=== PATIENT | female | born 1950 | race Caucasian/White ===

== ENCOUNTER → 2016-10-20 | Outpatient (CLI) | payer MEDICARE ==
[2016-10-20 19:52] LABS: DHEA Sulfate 97.1 ug/dL (26.0-430.0)
[2016-10-20 22:45] LABS: ACTH 35.6 pg/mL (0.00-45.99)
== END | disposition home or self-care (01) ==
LOC: LABWHC1 14:19
PROVIDERS: ATTEND Internal Medicine Endocrinology, Diabetes & Metabolism
DX: L68.0 Hirsutism (principal)
CPT/HCPCS: 36415; 82024; 82533; 82626; 82627; 83498; 84146; 84403; 84439; 84443

== ENCOUNTER → 2016-10-21 | Outpatient (CLI) | payer MEDICARE ==
--- NOTE | 2016-10-21 18:20 | US ---
EXAMINATION TYPE: US transvaginal DATE OF EXAM: 10/21/2016 COMPARISON: NONE CLINICAL HISTORY: L68.0 Hirsutism. TECHNIQUE: Transvaginal (TV) Date of LMP: Years ago EXAM MEASUREMENTS: Uterus: 9.1 x 6.5 x 6.5 cm Endometrial Stripe: 1.9 cm 1. Uterus: Anteverted Heterogenous echogenic area visualized measuring 1.8 x 2.0 x 2.0 cm 2. Endometrium: appears heterogenous and thickened 3. Right Ovary: Obscured by overlying bowel gas 4. Left Ovary: Obscured by overlying bowel gas 5. Bilateral Adnexa: wnl 6. Posterior cul-de-sac: wnl Uterus and endometrium heterogenous in appearance. Echogenic area in uterus measuring 1.8 x 2.0 x 2.0 cm IMPRESSION: Uterus is large consistent with multiple fibroids. The largest is 2 cm. Abnormally thicke jori endometrium and follow-up is recommended. No adnexal mass.
== END ==
LOC: RADUSMAIN 17:18
PROVIDERS: ATTEND Family Medicine
DX: R93.8 Abnormal findings on diagnostic imaging of other specified body structures (principal); L68.0 Hirsutism
CPT/HCPCS: 76830

== ENCOUNTER → 2016-12-08 | Outpatient (CLI) | payer MEDICARE ==
--- NOTE | 2016-12-10 08:15 | MM ---
Reason for exam: screening (asymptomatic). Last mammogram was performed 3 years and 8 months ago. History: Patient is postmenopausal. Family history of breast cancer in cousin at age 60. Physical Findings: A clinical breast exam by your physician is recommended on an annual basis and results should be correlated with mammographic findings. MG Screening Mammo w CAD Bilateral CC and MLO view(s) were taken. XCCL view(s) were taken of the right breast. Prior study comparison: April 12, 2013, bilateral digital screening mammo w/CAD. August 28, 2010, bilateral digital screening mammo w/CAD. There are scattered fibroglandular densities. No suspicious abnormality. No significant changes when compared with prior studies. ASSESSMENT: Negative, BI-RAD 1 RECOMMENDATION: Routine screening mammogram of both breasts in 1 year.
== END | disposition home or self-care (01) ==
LOC: RADMAMWWP 10:46
PROVIDERS: ATTEND Family Medicine
DX: Z12.31 Encounter for screening mammogram for malignant neoplasm of breast (principal)

== ENCOUNTER → 2016-12-09 | Outpatient (CLI) | payer MEDICARE ==
[2016-12-09 10:15] LABS: Basophils % (A) 1 %; CH 28.9; CHCM 31.1; Eosinophils # (A) 0.1 k/uL (0-0.7); Eosinophils % (A) 2 %; HCT 47.1 % (34.0-46.0); HDW 2.35; Hypochromasia Slight; Luc # (Auto) 0.25; Luc % (Auto) 3; Lymphocytes % (A) 38 %; MCH 29.8 pg (25.0-35.0); MCHC 31.9 g/dL (31.0-37.0); MCV 93.5 fL (80.0-100.0); Mean Platelet Volume 8.6; Monocytes # (A) 0.5 k/uL (0-1.0); Monocytes % (A) 6 %; Neutrophils # (A) 4.1 k/uL (1.3-7.7); Neutrophils % (A) 51 %; RBC 5.04 m/uL (3.80-5.40); WBC 8.1 k/uL (3.8-10.6)
== END | disposition home or self-care (01) ==
LOC: LABPAT 09:10
PROVIDERS: ATTEND Obstetrics & Gynecology
DX: Z01.810 Encounter for preprocedural cardiovascular examination (principal)
CPT/HCPCS: 36415; 85025; 93005

== ENCOUNTER 2016-12-22 06:06 | Day surgery (SDC) | payer MEDICARE ==
[2016-12-21 10:13] VITALS: BMI 51.2
--- NOTE | 2016-12-21 19:16 | P.HPOB ---
History of Present Illness H&P Date: 12/21/16 Chief Complaint: Endometrial thickening This is a 66-year-old female 3 para 3 who presents for dilation and curettage with hysteroscopy secondary to thickened endometrium. She did have an endometrial biopsy performed in the office on 11/13/2016 that showed a minute fragment of endocervical mucosa with focal squamous metaplasia and coexisting intact ectocervical mucosa but no endometrial tissue present for evaluation. She is therefore scheduled for this procedure to better evaluate the lining of her uterus. She denies any postmenopausal bleeding. Her last menstrual period was at age 55-56. Pelvic ultrasound showed uterus measuring 9.1 x 6.5 x 6.5 cm with endometrial thickness of 1.9 cm and multiple fibroids the largest of which was 2 cm. Neither ovary was visualized but no adnexal masses were seen. Obstetrical history: . History of 3 vaginal deliveries. Gynecologic history: She does have a history of herpes but no recent outbreaks. She has had no recent sexual partners. Social history: She is and retired. Review of Systems Constitutional: Reports fatigue Ears, nose, mouth and throat: Denies headache, Denies sore throat Cardiovascular: Denies chest pain Respiratory: Reports dyspnea Gastrointestinal: Denies abdominal pain, Denies diarrhea, Denies nausea, Denies vomiting Genitourinary: Reports abnormal vaginal bleeding, Reports urge incontinence, Denies pelvic pain Menstruation: Reports postmenopausal Musculoskeletal: Denies myalgias Integumentary: Reports hirsutism Neurological: Reports paresthesias (Cold feeling in her lower legs), Denies headaches Psychiatric: Reports depression, Reports insomnia, Denies anxiety Past Medical History Past Medical History: Diabetes Mellitus, Hyperlipidemia, Hypertension, Osteoarthritis (OA), Thyroid Disorder Additional Past Medical History / Comment(s): seasonal allergies, diabetic neuropathy History of Any Multi-Drug Resistant Organisms: None Reported Past Surgical History: Adenoidectomy, Joint Replacement, Tonsillectomy, Tubal Ligation Additional Past Surgical History / Comment(s): nataliya knee replacement Past Anesthesia/Blood Transfusion Reactions: No Reported Reaction Past Psychological History: No Psychological Hx Reported Smoking Status: Never smoker Past Alcohol Use History: None Reported Past Drug Use History: None Reported - Past Family History Sister(s) Family Medical History: Cancer Additional Family Medical History / Comment(s): melanoma Daughter(s) Family Medical History: Cancer Additional Family Medical History / Comment(s): Medications and Allergies Home Medications Medication Instructions Recorded Confirmed Type Aspirin [Adult Low Dose Aspirin EC] 81 mg PO DAILY 12/21/16 12/21/16 History Cholecalciferol [Vitamin D3] 1,000 unit PO DAILY 12/21/16 12/21/16 History Dapagliflozin Propanediol [Farxiga] 10 mg PO DAILY 12/21/16 12/21/16 History INSULIN LISPRO (HumaLOG) [HumaLOG] See Protocol SQ AC-TID 12/21/16 12/21/16 History Insulin Lispro [humaLOG Kwikpen] 20 unit SQ AC-LUNCH 12/21/16 12/21/16 History Insulin Lispro [humaLOG Kwikpen] 23 unit SQ AC-SUPPER 12/21/16 12/21/16 History Insulin Lispro [humaLOG Kwikpen] 24 unit SQ AC-BRKFST 12/21/16 12/21/16 History Levothyroxine Sodium 25 mcg PO DAILY 12/21/16 12/21/16 History Ramipril [Altace] 5 mg PO DAILY 12/21/16 12/21/16 History Rosuvastatin [Crestor] 10 mg PO DAILY 12/21/16 12/21/16 History metFORMIN HCL 1,000 mg PO BID 12/21/16 12/21/16 History Allergies Allergy/AdvReac Type Severity Reaction Status Date / Time adhesive tape Allergy red skin Verified 12/21/16 09:37 Exam Osteopathic Statement: *. No significant issues noted on an osteopathic structural exam other than those noted in the History and Physical/Consult. - Vital Signs Vital signs: Intake and Output 12/21/16 12/21/16 12/21/16 06:59 14:59 22:59 Other: Weight 131.088 kg Patient Weight 12/22/16 06:59 Weight 131.088 kg HEENT: Within normal limits Heart: Regular rate and rhythm Lungs: Clear to auscultation bilaterally Abdomen: Soft, nontender Pelvic exam: Uterus is small, anteverted, with no adnexal masses or tenderness noted. Extremities: Negative Homans Assessment and Plan (1) Endometrial thickening on ultra sound Status: Acute Plan: Proceed with dilation and curettage with hysteroscopy. I have discussed the risks, benefits, and alternative therapies for the above- mentioned procedure and for both sedation/anesthesia as well as necessary blood products administration, if indicated, as they pertain to this patient. The patient has indicated her understanding and acceptance of the risks and procedures discussed.
[~2016-12-22 06:06] MED LIST: DEXAMETHASONE SOD PHOSPHATE 10 MG/ML 1 ML VIAL IV ONE; HYDROmorphone 0.5 MG/0.5 ML SYRINGE IVP PRN; LACTATED RINGERS 1,000 ML IV SCH; ONDANSETRON 4 MG/2 ML VIAL IVP ONE; Pre Op ABX Message 1 EACH MISC MISCELLANE ONE
[2016-12-22] MEDS ORDERED: LIDOCAINE 1% 20 ML VIAL (10MG/ML) FOR IV START INTRADERMA ONE (07:03)
[2016-12-22 07:08] LABS: Glucose,Whole Blood 114 mg/dL (75-99)
[2016-12-22] MEDS ORDERED: SUCCINYLCHOLINE CHLORIDE 100 MG/5 ML SYR IV ONE (07:40)
[2016-12-22] MEDS ORDERED: LIDOCAINE 1% INJ 10MG/ML (20 ML MDV) ONE (07:40)
[2016-12-22] MEDS ORDERED: PROPOFOL 10 MG/ML 20 ML VIAL IV ONE (07:40)
[2016-12-22] MEDS ORDERED: fentaNYL (PF) 50 MCG/ML 2 ML AMP ONE (07:40)
[2016-12-22] MEDS ORDERED: MIDAZOLAM 2 MG/2 ML VIAL ONE (07:40)
[2016-12-22] MEDS ORDERED: KETOROLAC 30 MG/ML 1 ML VIAL IVP ONE (08:28)
[2016-12-22 08:31] LABS: Glucose,Whole Blood 115 mg/dL (75-99)
[2016-12-22 08:33] VITALS: TEMP 97
--- NOTE | 2016-12-22 08:38 | P.OP ---
Date of Procedure: 12/22/16 Preoperative Diagnosis: Endometrial thickening Postoperative Diagnosis: Same Procedure(s) Performed: Hysteroscopy with dilatation and curettage Anesthesia: CINDY Surgeon: Isabell Guzman Estimated Blood Loss (ml): 2 Pathology: other (Endometrial curettings) Condition: stable Disposition: same day Indications for Procedure: This is a 66-year-old female 3 para 3 who presents for dilation and curettage with hysteroscopy secondary to thickened endometrium. She did have an endometrial biopsy performed in the office on 11/13/2016 that showed a minute fragment of endocervical mucosa with focal squamous metaplasia and coexisting intact ectocervical mucosa but no endometrial tissue present for evaluation. She is therefore scheduled for this procedure to better evaluate the lining of her uterus. She denies any postmenopausal bleeding. Her last menstrual period was at age 55-54. Pelvic ultrasound showed uterus measuring 9.1 x 6.5 x 6.5 cm with endometrial thickness of 1.9 cm and multiple fibroids the largest of which was 2 cm. Neither ovary was visualized but no adnexal masses were seen. Operative Findings: Uterus is sounded to 11 cm and anteverted. No adnexal masses are palpated. Upon hysteroscopy, a relatively dyssynchronous endometrial pattern was noted with both tubal ostia visualized. There was a slightly irregular contour noted upon curetting especially on the posterior border. A minimal to moderate amount of endometrial curettings are obtained. Description of Procedure: The patient is taken to the operating room where she is placed in the dorsal lithotomy position. She is prepped and draped in the normal sterile fashion. Her bladder is drained with a catheter and then removed. Examination is performed under anesthesia. Uterus is found to be anteverted with no adnexal masses palpated. A weighted speculum was placed in the patient's vagina. A right angle retractor was used to visualize the cervix. The anterior lip of the cervix is grasped with a single-tooth tenaculum. Next the uterus is sounded to 11 cm. The cervix is gently dilated with [place] dilators until a hysteroscope could be passed. Hysteroscopy was performed using normal saline. The above noted findings are made and pictures are taken. The hysteroscope was then withdrawn. Cervix is gently dilated further. Next a polyp forcep was introduced with a small amount of polypoid tissue obtained. Next the small uterine curet was then introduced and uterine curettage was performed until a gritty texture was noted. There was noted to be a slightly irregular contour on the posterior border. A minimal to moderate amount of endometrial curettings are obtained. The specimen is removed from the field. The single- tooth tenaculum was removed from the anterior lip of the cervix. Minimal bleeding is noted. All instruments are removed from the vagina. All sponge counts are correct. The patient is then taken to recovery room in stable condition.
[2016-12-22 09:32] VITALS: RESP 18
[2016-12-22 09:33] VITALS: BP 127/74; PULSE 85
== END 2016-12-22 10:01 | disposition home or self-care (01) ==
LOC: OR 06:06
PROVIDERS: ATTEND Obstetrics & Gynecology
DX: N85.8 Other specified noninflammatory disorders of uterus (principal); N85.02 Endometrial intraepithelial neoplasia [EIN]; E78.5 Hyperlipidemia, unspecified; I10 Essential (primary) hypertension; M19.90 Unspecified osteoarthritis, unspecified site; E07.9 Disorder of thyroid, unspecified; E13.21 Other specified diabetes mellitus with diabetic nephropathy; Z79.4 Long term (current) use of insulin; Z79.82 Long term (current) use of aspirin; Z79.899 Other long term (current) drug therapy; Z91.09 Other allergy status, other than to drugs and biological substances; E66.01 Morbid (severe) obesity due to excess calories; Z68.43 Body mass index [BMI] 50.0-59.9, adult
CPT/HCPCS: 88305; 58558; J2250; J1100; J2405; J2001; J3010; J1885; J0330; J2704

== ENCOUNTER → 2017-04-07 | Outpatient (CLI) | payer MEDICARE ==
--- NOTE | 2017-04-07 08:56 | US ---
EXAMINATION TYPE: US transvaginal DATE OF EXAM: 04/07/2017 COMPARISON: 10/21/2016 CLINICAL HISTORY: 67-year-old female N95.0 Post menopausal bleeding. Pt states on/off vaginal bleedin g, D&C in January TECHNIQUE: Transvaginal (TV) Date of LMP: Pt states on/off vaginal bleeding for many months even post D&C in January Findings: Uterus: Anteverted measuring 9.2 x 4.9 x 4.6 cm. Heterogeneous myometrium with 2 focal fibroids, anteriorly measuring 2.2 cm anteroposteriorly measuri ng 2.7 cm. These appear intramural. The posterior fibroid is partially subserosal. 7 mm right-sided cervical nabothian cyst. Endometrial Stripe: 1.7 cm, abnormally thickened for a postmenopausal female. Neither ovary is visualized. No evident adnexal abnormality or cul-de-sac free fluid. IMPRESSION: If the patient had interval D&C, there is recurrence of abnormal endometrial thickening (1.7 cm). End ometrial carcinoma and endometrial hyperplasia are in the differential. Fibroid uterus. Neither ovary could be visualized.
== END | disposition home or self-care (01) ==
LOC: RADUSWWP 08:02
PROVIDERS: ATTEND Obstetrics & Gynecology
DX: D25.9 Leiomyoma of uterus, unspecified (principal); N95.0 Postmenopausal bleeding
CPT/HCPCS: 76830

== ENCOUNTER → 2017-05-18 | Outpatient (CLI) | payer MEDICARE ==
[2017-05-18 16:51] LABS: Basophils # (A) 0.1 k/uL (0-0.2); Basophils % (A) 1 %; Eosinophils # (A) 0.1 k/uL (0-0.7); Eosinophils % (A) 2 %; HCT 42.6 % (34.0-46.0); HGB 14.2 gm/dL (11.4-16.0); Lymphocytes # (A) 2.8 k/uL (1.0-4.8); Lymphocytes % (A) 33 %; MCH 29.9 pg (25.0-35.0); MCHC 33.4 g/dL (31.0-37.0); MCV 89.4 fL (80.0-100.0); Mean Platelet Volume 8.1; Monocytes # (A) 0.4 k/uL (0-1.0); Monocytes % (A) 5 %; Neutrophils # (A) 4.9 k/uL (1.3-7.7); Neutrophils % (A) 57 %; Platelet Count 227 k/uL (150-450); RBC 4.76 m/uL (3.80-5.40); RDW 13.1 % (11.5-15.5); WBC 8.5 k/uL (3.8-10.6)
== END | disposition home or self-care (01) ==
LOC: LABPAT 16:09
PROVIDERS: ATTEND Obstetrics & Gynecology
DX: Z01.812 Encounter for preprocedural laboratory examination (principal)
CPT/HCPCS: 36415; 85025

== ENCOUNTER 2017-05-24 05:48 | Day surgery (SDC) | payer MEDICARE ==
[2017-05-19 10:42] VITALS: BMI 51.3
--- NOTE | 2017-05-23 20:05 | P.HPOB ---
History of Present Illness H&P Date: 05/23/17 Chief Complaint: Postmenopausal bleeding, endometrial thickening This is a 67-year-old female 3 para 3 who presents for dilation and curettage with hysteroscopy secondary to thickened endometrium and postmenopausal bleeding. She did have a dilation and curettage in December 2016 which did show non-atypical and focal atypical endometrial hyperplasia with features suggestive of endometrial polyp. She stopped bleeding for about 2 weeks after the dilation and curettage in December but then began bleeding again with. Light flow. She bleeds for about 10 days at a time. She was placed on Provera for 3 months but did continue to have bleeding or spotting throughout that time period. Her most recent pelvic ultrasound showed uterus measuring 9.2 x 4.9 x 4.6 cm with 2 focal fibroids noted anteriorly and posterior measuring 2.2 and 2.7 cm. Endometrial stripe thickness was 1.7 cm. Neither ovary was well visualized. Obstetrical history: . History of 3 vaginal deliveries. Gynecologic history: History of herpes however no recent outbreaks. She is not currently sexually active. Social history: She is retired. Review of Systems Constitutional: Reports fatigue, Denies chills, Denies fever Eyes: denies blurred vision, denies pain Ears, nose, mouth and throat: Denies headache, Denies sore throat Cardiovascular: Reports shortness of breath, Denies chest pain Respiratory: Denies cough Gastrointestinal: Denies abdominal pain, Denies diarrhea, Denies nausea, Denies vomiting Genitourinary: Reports urge incontinence, Denies dysuria, Denies hematuria Menstruation: Reports postmenopausal Musculoskeletal: Reports myalgias Integumentary: Denies pruritus, Denies rash Neurological: Reports paresthesias Psychiatric: Reports depression, Reports insomnia Endocrine: Denies weight change Past Medical History Past Medical History: Diabetes Mellitus, Hyperlipidemia, Hypertension, Osteoarthritis (OA), Thyroid Disorder History of Any Multi-Drug Resistant Organisms: None Reported Past Surgical History: Adenoidectomy, Joint Replacement, Tonsillectomy, Tubal Ligation Additional Past Surgical History / Comment(s): nataliya. knees replaced, dilation and curettage Past Anesthesia/Blood Transfusion Reactions: No Reported Reaction Past Psychological History: Depression Smoking Status: Never smoker Past Alcohol Use History: None Reported Past Drug Use History: None Reported - Past Family History Sister(s) Family Medical History: Cancer Medications and Allergies Home Medications Medication Instructions Recorded Confirmed Type Aspirin [Adult Low Dose Aspirin EC] 81 mg PO DAILY 12/21/16 05/19/17 History Cholecalciferol [Vitamin D3] 1,000 unit PO DAILY 12/21/16 05/19/17 History Dapagliflozin Propanediol [Farxiga] 10 mg PO DAILY 12/21/16 05/19/17 History INSULIN LISPRO (HumaLOG) [HumaLOG] See Protocol SQ AC-TID 12/21/16 05/19/17 History Insulin Lispro [humaLOG Kwikpen] 20 unit SQ AC-LUNCH 12/21/16 05/19/17 History Insulin Lispro [humaLOG Kwikpen] 23 unit SQ AC-SUPPER 12/21/16 05/19/17 History Insulin Lispro [humaLOG Kwikpen] 24 unit SQ AC-BRKFST 12/21/16 05/19/17 History Levothyroxine Sodium 25 mcg PO DAILY 12/21/16 05/19/17 History Ramipril [Altace] 5 mg PO DAILY 12/21/16 05/19/17 History Rosuvastatin [Crestor] 10 mg PO DAILY 12/21/16 05/19/17 History metFORMIN HCL 1,000 mg PO BID 12/21/16 05/19/17 History Insulin Glargine [Lantus] 50 unit SQ HS 12/22/16 05/19/17 History Liraglutide [Victoza 2-Bhanu] 0.6 mg SQ DAILY 05/19/17 05/19/17 History Allergies Allergy/AdvReac Type Severity Reaction Status Date / Time adhesive tape Allergy red skin Verified 05/19/17 10:06 Exam Osteopathic Statement: *. No significant issues noted on an osteopathic structural exam other than those noted in the History and Physical/Consult. HEENT: Within normal limits Heart: Regular rate and rhythm Lungs: Clear to auscultation bilaterally Abdomen: Soft, nontender Pelvic exam: Cervical os shows bloody discharge. Uterus is difficult to palpate secondary to patient's size. No adnexal masses or tenderness are noted. Extremities: Negative Homans Assessment and Plan (1) Postmenopausal bleeding Status: Acute Code(s): N95.0 - POSTMENOPAUSAL BLEEDING SNOMED Code(s): 94164500 (2) Endometrial thickening on ultra sound Status: Acute Code(s): R93.8 - ABNORMAL FINDINGS ON DIAGNOSTIC IMAGING OF BODY STRUCTURES SNOMED Code(s): 656812240 Plan: Proceed with dilation and curettage with hysteroscopy. I have discussed the risks, benefits, and alternative therapies for the above- mentioned procedure and for both sedation/anesthesia as well as necessary blood products administration, if indicated, as they pertain to this patient. The patient has indicated her understanding and acceptance of the risks and procedures discussed.
[~2017-05-24 05:48] MED LIST changes: -HYDROmorphone 0.5 MG/0.5 ML SYRINGE IVP PRN; +MIDAZOLAM 2 MG/2 ML VIAL IV PRN; -Pre Op ABX Message 1 EACH MISC MISCELLANE ONE; +fentaNYL (PF) 50 MCG/ML 2 ML AMP IV PRN
[2017-05-24 07:10] LABS: Glucose,Whole Blood 199 mg/dL (75-99)
[2017-05-24] MEDS ORDERED: LIDOCAINE 1% 20 ML VIAL (10MG/ML) FOR IV START INTRADERMA ONE (07:13)
[2017-05-24] MEDS ORDERED: SUCCINYLCHOLINE CHLORIDE 100 MG/5 ML SYR IV ONE (07:37)
[2017-05-24] MEDS ORDERED: KETOROLAC 30 MG/ML 1 ML VIAL ONE (07:37)
[2017-05-24] MEDS ORDERED: fentaNYL (PF) 50 MCG/ML 2 ML AMP ONE (07:37)
[2017-05-24] MEDS ORDERED: MIDAZOLAM 2 MG/2 ML VIAL ONE (07:37)
[2017-05-24] MEDS ORDERED: PROPOFOL 10 MG/ML 20 ML VIAL IV ONE (07:37)
[2017-05-24] MEDS ORDERED: LIDOCAINE 1% INJ 10MG/ML (20 ML MDV) ONE (07:37)
--- NOTE | 2017-05-24 08:02 | P.OP ---
Date of Procedure: 05/24/17 Preoperative Diagnosis: 1. Postmenopausal bleeding. 2. Endometrial thickening. 3. History of endometrial hyperplasia. Postoperative Diagnosis: Same Procedure(s) Performed: Dilation and curettage with hysteroscopy Anesthesia: CINDY Surgeon: Isabell Guzman Estimated Blood Loss (ml): 5 Pathology: other (Endometrial curettings) Condition: stable Disposition: same day Indications for Procedure: This is a 67-year-old female 3 para 3 who presents for dilation and curettage with hysteroscopy secondary to thickened endometrium and postmenopausal bleeding. She did have a dilation and curettage in December 2016 which did show non-atypical and focal atypical endometrial hyperplasia with features suggestive of endometrial polyp. She stopped bleeding for about 2 weeks after the dilation and curettage in December but then began bleeding again with. Light flow. She bleeds for about 10 days at a time. She was placed on Provera for 3 months but did continue to have bleeding or spotting throughout that time period. Her most recent pelvic ultrasound showed uterus measuring 9.2 x 4.9 x 4.6 cm with 2 focal fibroids noted anteriorly and posterior measuring 2.2 and 2.7 cm. Endometrial stripe thickness was 1.7 cm. Neither ovary was well visualized. Operative Findings: Uterus is anteverted with no adnexal masses palpated. Uterus is sounded to 10 cm. Upon hysteroscopy a fairly large polypoid type tissue was noted on the right side of the uterus. There were some smaller polypoid type tissue noted along the left side of the uterus. Both tubal ostia were visualized. A moderate amount of endometrial curettings are obtained. Description of Procedure: The patient was taken to the operating room where she is placed in the dorsal lithotomy position. She is prepped and draped in the normal sterile fashion. E string with a catheter. Uterus is found to be anteverted with no adnexal masses palpated. Next a weighted speculum was placed in the patient's vagina. A right angle retractor was used to visualize the cervix. The anterior lip of the cervix is grasped with a single-tooth tenaculum. The uterus is sounded to 10 cm. The cervix is gently dilated with [place] dilators until a hysteroscope could be passed. Hysteroscopy is performed with the above noted findings are noted. Pictures are taken. Next the hysteroscope was withdrawn and the cervix is gently dilated further. Next the polyp forceps is introduced and really large approximately 1-2 cm polypoid type tissue was removed. Next a medium- size sharp curet was introduced and sharp curettage was performed until a gritty texture was noted. A moderate amount of curettings was obtained. Next the specimen was removed from the field. The single-tooth tenaculum is removed and no bleeding is noted. All instruments are removed from the vagina. The patient is then taken to recovery room.
[2017-05-24 08:15] VITALS: TEMP 96.8
[2017-05-24 08:47] VITALS: RESP 20
[2017-05-24] MEDS ORDERED: IV FLUID CONTINUATION 1,000 ML IV ONE (08:47)
[2017-05-24 09:07] LABS: Glucose,Whole Blood 243 mg/dL (75-99)
[2017-05-24 09:27] VITALS: BP 132/66; PULSE 86
== END 2017-05-24 09:42 | disposition home or self-care (01) ==
LOC: OR 05:48
PROVIDERS: ATTEND Obstetrics & Gynecology
DX: N84.0 Polyp of corpus uteri (principal); E11.9 Type 2 diabetes mellitus without complications; E78.5 Hyperlipidemia, unspecified; I10 Essential (primary) hypertension; M19.90 Unspecified osteoarthritis, unspecified site; E07.9 Disorder of thyroid, unspecified; F32.9 Major depressive disorder, single episode, unspecified; Z79.82 Long term (current) use of aspirin; Z79.890 Hormone replacement therapy; Z79.4 Long term (current) use of insulin; Z79.899 Other long term (current) drug therapy; Z91.048 Other nonmedicinal substance allergy status
CPT/HCPCS: 88305; 58558; J2250; J1100; J2405; J2001; J3010; J1885; J0330; J2704

== ENCOUNTER → 2018-01-19 | Outpatient (CLI) | payer MEDICARE ==
--- NOTE | 2018-01-20 12:00 | MM ---
Reason for exam: screening (asymptomatic). Last mammogram was performed 1 year and 1 month ago. History: Patient is postmenopausal. Family history of breast cancer in cousin at age 60. Physical Findings: A clinical breast exam by your physician is recommended on an annual basis and results should be correlated with mammographic findings. MG Screening Mammo w CAD Bilateral CC and MLO view(s) were taken. Prior study comparison: December 08, 2016, bilateral MG screening mammo w CAD. April 12, 2013, bilateral digital screening mammo w/CAD. There are scattered fibroglandular densities. Benign appearing bilateral calcifications. No suspicious abnormality. No significant changes when compared with prior studies. ASSESSMENT: Benign, BI-RAD 2 RECOMMENDATION: Routine screening mammogram of both breasts in 1 year.
== END | disposition home or self-care (01) ==
LOC: RADMAMWWP 10:01
PROVIDERS: ATTEND Family Medicine
DX: Z12.31 Encounter for screening mammogram for malignant neoplasm of breast (principal)
CPT/HCPCS: 77067

== ENCOUNTER → 2019-03-03 | Outpatient (CLI) | payer MEDICARE ==
--- NOTE | 2019-03-03 12:45 | MM ---
Reason for exam: screening (asymptomatic). Last mammogram was performed 1 year and 1 month ago. History: Patient is postmenopausal. Family history of breast cancer in cousin at age 60. Physical Findings: A clinical breast exam by your physician is recommended on an annual basis and results should be correlated with mammographic findings. MG Screening Mammo w CAD Bilateral CC and MLO view(s) were taken. Prior study comparison: January 19, 2018, bilateral MG screening mammo w CAD. December 08, 2016, bilateral MG screening mammo w CAD. There are scattered fibroglandular densities. Finding #1: There are typically benign linear calcifications in the right breast. Finding #2: There are typically benign vascular calcifications in the left breast. There is no discrete abnormality. ASSESSMENT: Benign, BI-RAD 2 RECOMMENDATION: Routine screening mammogram of both breasts in 1 year.
== END | disposition home or self-care (01) ==
LOC: RADMAMWWP 08:48
PROVIDERS: ATTEND Family Medicine
DX: Z12.31 Encounter for screening mammogram for malignant neoplasm of breast (principal)
CPT/HCPCS: 77067

== ENCOUNTER → 2020-05-21 | Outpatient (CLI) | payer MEDICARE ==
--- NOTE | 2020-05-21 14:26 | XR ---
EXAMINATION TYPE: XR thoracic spine 2V DATE OF EXAM: 05/21/2020 COMPARISON: None HISTORY: Thoracic spine pain TECHNIQUE: 2 views thoracic spine FINDINGS: There are 11 thoracic type vertebral bodies. The pedicles are intact. Spondylosis is presen t. Sagittal alignment appears preserved. IMPRESSION: 1. Spondylosis. 2. No acute osseous abnormality
== END ==
LOC: RADXRMAIN 09:57
PROVIDERS: ATTEND Family Medicine
DX: M47.814 Spondylosis without myelopathy or radiculopathy, thoracic region (principal)
CPT/HCPCS: 72070

== ENCOUNTER 2021-01-07 10:07 | Emergency (ER) | payer MEDICARE ==
[2021-01-07 10:22] VITALS: BP 158/77; PULSE 109; RESP 20; TEMP 97.9
[2021-01-07] MEDS ORDERED: KETOROLAC 15 MG/ML 1 ML VIAL IM STA (10:28)
--- NOTE | 2021-01-07 11:10 | ED ---
Lower Extremity Injury HPI - General Chief Complaint: Extremity Injury, Lower Stated Complaint: foot injury Time Seen by Provider: 01/07/21 10:28 Source: patient, RN notes reviewed Mode of arrival: ambulatory Limitations: no limitations - History of Present Illness Initial Comments: Patient is a 70-year-old female that presents to the emergency department complaining of right foot pain. She notes that she was try to help a friend on plugged a phone wire phimotic out when she felt her foot popped several times. She notes it is mostly over the lateral ankle at this time. She no she can walk on it with minimal to moderate discomfort. She is otherwise well-appearing. She denied any issues or complaints. She denied pain medication at this time is painful to 5 out of 10. She denied chest pain first breath headache nausea vomiting diarrhea constipation fever fatigue chills. - Related Data Home Medications Medication Instructions Recorded Confirmed Aspirin [Adult Low Dose Aspirin EC] 81 mg PO DAILY 12/21/16 05/19/17 Cholecalciferol [Vitamin D3] 1,000 unit PO DAILY 12/21/16 05/19/17 INSULIN LISPRO (HumaLOG) [HumaLOG] See Protocol SQ AC-TID 12/21/16 05/19/17 Insulin Lispro [humaLOG Kwikpen] 20 unit SQ AC-LUNCH 12/21/16 05/19/17 Insulin Lispro [humaLOG Kwikpen] 23 unit SQ AC-SUPPER 12/21/16 05/19/17 Insulin Lispro [humaLOG Kwikpen] 24 unit SQ AC-BRKFST 12/21/16 05/19/17 Levothyroxine Sodium 25 mcg PO DAILY 12/21/16 05/19/17 Rosuvastatin [Crestor] 10 mg PO DAILY 12/21/16 05/19/17 metFORMIN HCL [Glucophage] 1,000 mg PO BID 12/21/16 05/19/17 ramipriL [Altace] 5 mg PO DAILY 12/21/16 05/19/17 Insulin Glargine [Lantus] 50 unit SQ HS 12/22/16 05/19/17 Liraglutide [Victoza 2-Bhanu] 0.6 mg SQ DAILY 05/19/17 05/19/17 Allergies Allergy/AdvReac Type Severity Reaction Status Date / Time adhesive tape Allergy red skin Verified 11/02/21 10:21 Review of Systems ROS Statement: Those systems with pertinent positive or pertinent negative responses have been documented in the HPI. ROS Other: All systems not noted in ROS Statement are negative. Past Medical History Past Medical History: Diabetes Mellitus History of Any Multi-Drug Resistant Organisms: None Reported Past Surgical History: Section, Orthopedic Surgery, Tubal Ligation Past Psychological History: No Psychological Hx Reported Smoking Status: Never smoker Past Alcohol Use History: None Reported Past Drug Use History: None Reported General Exam Limitations: no limitations General appearance: alert, in no apparent distress, obese Head exam: Present: atraumatic, normocephalic, normal inspection Eye exam: Present: normal appearance, PERRL, EOMI. Absent: scleral icterus, conjunctival injection, periorbital swelling ENT exam: Present: normal exam, mucous membranes moist Neck exam: Present: normal inspection Respiratory exam: Present: normal lung sounds bilaterally. Absent: respiratory distress, wheezes, rales, rhonchi, stridor Cardiovascular Exam: Present: regular rate, normal rhythm, normal heart sounds. Absent: systolic murmur, diastolic murmur, rubs, gallop, clicks GI/Abdominal exam: Present: soft, normal bowel sounds. Absent: distended, tenderness, guarding, rebound, rigid Right Ankle exam: Present: normal inspection, full ROM, tenderness (Lateral aspect posterior inferior malleoli), swelling (Minimal). Absent: abrasion, laceration, ecchymosis, deformity, crepitus, dislocation, erythema Neurological exam: Present: alert, oriented X3 Psychiatric exam: Present: normal affect, normal mood Skin exam: Present: warm, dry, intact, normal color. Absent: rash Course Vital Signs 01/07/21 10:19 Temperature 97.9 F Pulse Rate 109 H Respiratory 20 Rate Blood Pressure 158/77 O2 Sat by Pulse 99 Oximetry Medical Decision Making - Medical Decision Making 70-year-old female complaining of right ankle foot pain after injuring it Wednesday helping unplug a telephone wire. X-rays of the right ankle/foot are. Patient declined pain medication at this time as she does have Tylenol Motrin at home. X-rays negative for any acute fractures or dislocations. Patient most likely a foot sprain. Patient is reluctant discharge home and conservative management. Case discussed with Dr. Ruiz, patient discharge home. - Radiology Data Radiology results: report reviewed, image reviewed X-ray the right foot: No acute osseous abnormality, hallux valgus deformity, calcaneal heel spurs. X-ray of the right ankle: Calcaneal heel spurs. Disposition Clinical Impression: Right ankle sprain, Right foot sprain Disposition: HOME SELF-CARE Instructions (If sedation given, give patient instructions): Foot Sprain (ED) Additional Instructions: Please return to the Emergency Department if symptoms worsen or any other concerns. Follow-up with primary care in 1-2 days. Rest ice compress elevate. Take Tylenol Motrin alternating every 3 hours as needed for pain control. Use as tolerated. Is patient prescribed a controlled substance at d/c from ED?: No Referrals: Ray Mesa DO [Primary Care Provider] - 1-2 days Time of Disposition: 11:45
--- NOTE | 2021-01-07 11:20 | XR ---
EXAMINATION TYPE: XR ankle complete RT DATE OF EXAM: 01/07/2021 COMPARISON: None HISTORY: Pain TECHNIQUE: Right ankle is examined in 3 projections FINDINGS: Plantar and Achilles tendon calcaneal heel spurs are present. No acute fracture or dislocat ion is evident. The ankle mortise is intact. Soft tissues appear within normal limits. Follow up exams can be performed 7-10 days from acute trauma for continued pain. IMPRESSION: 1. Calcaneal heel spurs.
--- NOTE | 2021-01-07 11:27 | XR ---
EXAMINATION TYPE: XR foot complete RT DATE OF EXAM: 01/07/2021 COMPARISON: None HISTORY: Pain TECHNIQUE: 3 view right foot FINDINGS: Hallux valgus deformity is present. Joint spaces appear preserved. There is some varus defo rmity of the distal third fourth and fifth digits. No acute fractures are evident. The soft tissues appear normal. Calcaneal heel spurs are present. IMPRESSION: 1. No acute osseous abnormality. 2. Hallux valgus deformity. 3. Calcaneal heel spurs.
== END 2021-01-07 12:02 | disposition home or self-care (01) ==
LOC: EC 10:07
DX: S93.401A Sprain of unspecified ligament of right ankle, initial encounter (principal); S93.601A Unspecified sprain of right foot, initial encounter; E11.9 Type 2 diabetes mellitus without complications; Z79.4 Long term (current) use of insulin; Z91.09 Other allergy status, other than to drugs and biological substances; X50.9XXA Other and unspecified overexertion or strenuous movements or postures, initial encounter
CPT/HCPCS: 99283

== ENCOUNTER → 2021-05-21 | Outpatient (CLI) | payer MEDICARE ==
--- NOTE | 2021-05-22 13:57 | MM ---
Reason for exam: screening (asymptomatic). Last mammogram was performed 2 years and 3 months ago. History: Patient is postmenopausal. Family history of breast cancer in cousin at age 60. Physical Findings: A clinical breast exam by your physician is recommended on an annual basis and results should be correlated with mammographic findings. MG Screening Mammo w CAD Bilateral CC and MLO view(s) were taken. CV view(s) were taken of the right breast. Prior study comparison: March 03, 2019, bilateral MG screening mammo w CAD. January 19, 2018, bilateral MG screening mammo w CAD. There are scattered fibroglandular densities. There is no discrete abnormality. No significant changes when compared with prior studies. ASSESSMENT: Negative, BI-RAD 1 RECOMMENDATION: Routine screening mammogram of both breasts in 1 year.
== END | disposition home or self-care (01) ==
LOC: RADMAMWWP 09:42
PROVIDERS: ATTEND Family Medicine
DX: Z12.31 Encounter for screening mammogram for malignant neoplasm of breast (principal)
CPT/HCPCS: 77067

== ENCOUNTER → 2021-09-15 | Outpatient (CLI) | payer MEDICARE ==
--- NOTE | 2021-09-15 09:35 | US ---
EXAMINATION TYPE: US liver DATE OF EXAM: 09/15/2021 COMPARISON: NONE CLINICAL HISTORY: R74.01 ELEVATION OF LEVELS. Elevation of labs Limited due to patient being morbidly obese. EXAM MEASUREMENTS: Liver Length: 17.3 cm Gallbladder Wall: 0.25 cm CBD: 0.56 cm Right Kidney: 13.9 x 6.3 x 5.4 cm Pancreas: Partially obscured by bowel gas Liver: heterogeneous, Increased attenuation, decreased visualization of vessels suggestive of fatty infiltrate Gallbladder: wnl Evidence for sonographic Tran's sign: No CBD: Upper limits of normal Right Kidney: wnl Suboptimal evaluation of the pancreas. Visualized liver heterogeneously hyperechoic. No adjacent asci emma. Evaluation for focal masses suboptimal. No biliary dilatation. No right-sided hydronephrosis. IMPRESSION: Heterogeneous hyperechoic appearance of liver consistent with diffuse fatty infiltration and/or underlying hepatocellular disease. Patient may benefit with imaging guided random sampling and /or ultrasound elastography to further evaluate.
== END | disposition home or self-care (01) ==
LOC: RADUSWWP 08:39
PROVIDERS: ATTEND Family Medicine
DX: R74.01 Elevation of levels of liver transaminase levels (principal)
CPT/HCPCS: 76705

== ENCOUNTER → 2022-02-16 | Outpatient (CLI) | payer MEDICARE ==
--- NOTE | 2022-02-16 11:50 | XR ---
EXAMINATION TYPE: XR chest 2V DATE OF EXAM: 02/16/2022 11:29 AM COMPARISON: Chest radiographs from 07/15/2009 TECHNIQUE: XR chest 2V Frontal and lateral views of the chest. CLINICAL INDICATION:Female, 71 years old with history of R06.00; FINDINGS: Lungs/Pleura: Bibasilar atelectasis. No evidence for pneumothorax, pleural effusion or focal consolid ation. Pulmonary vascularity: Unremarkable. Heart/mediastinum: Cardiomediastinal silhouette is unremarkable. Musculoskeletal: No acute osseous pathology. IMPRESSION: No acute cardiopulmonary disease/process.
== END | disposition home or self-care (01) ==
LOC: RADXRMAIN 11:12
PROVIDERS: ATTEND Family Medicine
DX: R06.00 Dyspnea, unspecified (principal)
CPT/HCPCS: 71046

== ENCOUNTER → 2022-05-26 | Outpatient (CLI) | payer MEDICARE ==
--- NOTE | 2022-05-27 08:55 | CA ---
Transthoracic Echo Report Name: Damaris Barajas Age: 72 Gender: F : 1950 Exam Date: 05/26/2022 14:22 Exam Location: [facility] Ht (in): 63 Wt (lb): 325 Ordering Physician: Ray Mesa DO Attending/Referring Phys: Rope Walker Radha Frost RDCS Procedure CPT: Indications: I51.7 Cardiac Hx: Technical Quality: Fair Contrast 1: Total Dose (mL): Contrast 2: Total Dose (mL): MEASUREMENTS (Male / Female) Normal Values 2D ECHO LV Diastolic Diameter PLAX 5.5 cm 4.2 - 5.9 / 3.9 - 5.3 cm LV Systolic Diameter PLAX 3.6 cm IVS Diastolic Thickness 1.2 cm 0.6 - 1.0 / 0.6 - 0.9 cm LVPW Diastolic Thickness 1.3 cm 0.6 - 1.0 / 0.6 - 0.9 cm LV Relative Wall Thickness 0.5 RV Internal Dim ED PLAX 3.2 cm LA Systolic Diameter LX 3.2 cm 3.0 - 4.0 / 2.7 - 3.8 cm LA Volume 42.3 cm??? 18 - 58 / 22 - 52 cm??? M-MODE Aortic Root Diameter MM 3.1 cm MV E Point Septal Separation 0.4 cm AV Cusp Separation MM 2.0 cm DOPPLER AV Peak Velocity 139.5 cm/s AV Peak Gradient 7.8 mmHg MV Area PHT 5.2 cm??? Mitral E Point Velocity 80.1 cm/s Mitral A Point Velocity 108.1 cm/s Mitral E to A Ratio 0.7 MV Deceleration Time 146.9 ms MV E' Velocity 7.4 cm/s Mitral E to MV E' Ratio 10.8 TR Peak Velocity 248.9 cm/s TR Peak Gradient 24.8 mmHg Right Ventricular Systolic Press 29.8 mmHg FINDINGS Left Ventricle Left ventricular ejection fraction is estimated at 50-55 %. Mild left ventricular dilatation. Mild concentric left ventricular hypertrophy. No obvious regional wall motion abnormalities. Right Ventricle Normal right ventricular size and function. Right ventricular systolic pressure within normal limits. Right Atrium Normal right atrial size. Left Atrium Normal left atrial size. Mitral Valve Structurally normal mitral valve. No mitral stenosis, regurgitation or prolapse. Aortic Valve Trileaflet aortic valve. No aortic valve stenosis or regurgitation. Tricuspid Valve Structurally normal tricuspid valve. Mild tricuspid regurgitation. Pulmonic Valve Structurally normal pulmonic valve. Trace pulmonic regurgitation. Pericardium Normal pericardium. No pericardial effusion. Pericardial fat pad Aorta Normal size aortic root and proximal ascending aorta. CONCLUSIONS Technically difficult study for interpretation Normal LV systolic function. Mild concentric LVH Normal RV function and RV dimension Poorly visualized intracardiac valves No evidence of pericardial effusion Previewed by: Dr. Georges De Leon MD (Electronically Signed) Final Date: 27 May 2022 08:55
== END | disposition home or self-care (01) ==
LOC: RADECHMAIN 14:00
PROVIDERS: ATTEND Family Medicine
DX: I51.7 Cardiomegaly (principal)
CPT/HCPCS: 93306

== ENCOUNTER 2024-01-28 10:57 | Emergency (ER) | payer MEDICARE ==
--- NOTE | 2024-01-28 11:12 | ED ---
Fall HPI - General Chief Complaint: Fall Stated Complaint: Fall Time Seen by Provider: 01/28/24 11:08 Source: patient, RN notes reviewed Mode of arrival: EMS Limitations: no limitations - History of Present Illness Initial Comments: This is a 73-year-old female who presents to the emergency department for a fall. States that she slipped in her shower this morning and fell backwards, hitting her head. Not taking any blood thinners. Denies any loss of consciousness. Also has pain over the right rib cage. While she has pain over this area, denies any difficulty breathing. MD Complaint: fall - Related Data Home Medications Medication Instructions Recorded Confirmed Aspirin [Adult Low Dose Aspirin EC] 81 mg PO DAILY 12/21/16 05/19/17 Cholecalciferol [Vitamin D3] 1,000 unit PO DAILY 12/21/16 05/19/17 INSULIN LISPRO (HumaLOG) [HumaLOG] See Protocol SQ AC-TID 12/21/16 05/19/17 Insulin Lispro [humaLOG Kwikpen] 20 unit SQ AC-LUNCH 12/21/16 05/19/17 Insulin Lispro [humaLOG Kwikpen] 23 unit SQ AC-SUPPER 12/21/16 05/19/17 Insulin Lispro [humaLOG Kwikpen] 24 unit SQ AC-BRKFST 12/21/16 05/19/17 Levothyroxine Sodium 25 mcg PO DAILY 12/21/16 05/19/17 Rosuvastatin [Crestor] 10 mg PO DAILY 12/21/16 05/19/17 metFORMIN HCL [Glucophage] 1,000 mg PO BID 12/21/16 05/19/17 ramipriL [Altace] 5 mg PO DAILY 12/21/16 05/19/17 Insulin Glargine [Lantus] 50 unit SQ HS 12/22/16 05/19/17 Liraglutide [Victoza 2-Bhanu] 0.6 mg SQ DAILY 05/19/17 05/19/17 Previous Rx's Medication Instructions Recorded Nitrofurantoin Monohyd/M-Cryst 100 mg PO Q12HR #10 cap 04/18/22 [Macrobid] Ondansetron Odt [Zofran Odt] 4 mg PO Q8HR PRN #10 tab 04/18/22 Allergies Allergy/AdvReac Type Severity Reaction Status Date / Time adhesive tape Allergy red skin Verified 01/28/24 11:13 Review of Systems ROS Statement: Those systems with pertinent positive or pertinent negative responses have been documented in the HPI. ROS Other: All systems not noted in ROS Statement are negative. Past Medical History Past Medical History: Diabetes Mellitus History of Any Multi-Drug Resistant Organisms: None Reported Past Surgical History: Section, Joint Replacement, Orthopedic Surgery, Tonsillectomy, Tubal Ligation Additional Past Surgical History / Comment(s): cataract surgery 2022 Past Psychological History: No Psychological Hx Reported Smoking Status: Never smoker Past Alcohol Use History: None Reported Past Drug Use History: None Reported General Exam Limitations: no limitations General appearance: alert, in no apparent distress Head exam: Present: other (Palpable hematoma over the occiput. No overlying abrasions or lacerations) Eye exam: Present: normal appearance, PERRL, EOMI. Absent: scleral icterus, conjunctival injection, periorbital swelling Respiratory exam: Present: normal lung sounds bilaterally. Absent: respiratory distress, wheezes, rales, rhonchi, stridor Cardiovascular Exam: Present: regular rate, normal rhythm, normal heart sounds. Absent: systolic murmur, diastolic murmur, rubs, gallop, clicks Neurological exam: Present: alert, oriented X3, CN II-XII intact Psychiatric exam: Present: normal affect, normal mood Skin exam: Present: warm, dry, intact, normal color. Absent: rash Course Vital Signs 01/28/24 11:11 Temperature 98.1 F Pulse Rate 95 Respiratory 20 Rate Blood Pressure 150/90 O2 Sat by Pulse 99 Oximetry Medical Decision Making - Medical Decision Making This is a 73-year-old female who presents to the emergency department for a fall. Was pt. sent in by a medical professional or institution? @ -No Did you speak to anyone other than the patient for history? @ -No Did you review nursing and triage notes? @ -Yes, and I agree, it is accurate with regards to the patient's symptoms. Were old charts reviewed? @ -No Differential Diagnosis? @ -Differential Diagnosis Head Injury: Contusion, hematoma, intracranial hemorrhage, skull fracture, whiplash, concussion, this is not meant to be an all-inclusive list. EKG interpreted by me (3pts min.)? @ -Not obtained X-rays interpreted by me (1pt min.)? @ -Not obtained CT interpreted by me (1pt min.)? @ -Computed tomography scan of the brain and c-spine obtained. My inte rpretation identifies no evidence of an acute intracranial hemorrhage, skull fracture, or cervical spine fracture. CT scan of the chest obtained. My interpretation identifies no acute rib fractures. U/S interpreted by me (1pt. min.)? @ -Not obtained What testing was considered but not performed? (CT, X-rays, U/S, labs)? Why? @ -We were going to get a chest x-ray on the patient, however due to her body habitus the stage technician advised that a CT scan of the chest would be advised as they will not get a good picture of her ribs with an x-ray. What meds were considered but not given? Why? @ -None Did you discuss the management of the patient with other professionals? @ -No Did you reconcile home meds? @ -No Was smoking cessation discussed for >3mins.? @ -No Was critical care preformed (if so, how long)? @ -No Were there social determinants of health that impacted care today? How? (Homelessness, low income, unemployed, alcoholism, drug addiction, transportation, low edu. Level, literacy, decrease access to med. care, assisted, rehab)? @ -No Was there de-escalation of care discussed even if they declined? (Discuss DNR or withdrawal of care, Hospice)? @ -No What co-morbidities impacted this encounter? (DM, HTN, Smoking, COPD, CAD, Cancer, CVA, Hep., AIDS, mental health diagnosis, sleep apnea, morbid obesity)? @ -None Was patient admitted / discharged? @ -Discharged. CT scan of the brain and C-spine obtained revealing no acute process. We were going to obtain a chest x-ray, however due to her body habitus the stage technician advised a CT scan of the chest instead for better evaluation. This was performed revealing no acute traumatic process. Patient declined the need for any pain medication in the emergency department. Advised Tylenol as needed for pain relief and follow-up with her primary care provider. Patient discharged home in stable condition. Case discussed with ED attending Dr. Barreto. Return precautions reviewed in depth, the patient is instructed to return to the emergency department with any new, worsening, or concerning symptoms. Patient verbalized understanding. Undiagnosed new problem with uncertain prognosis? @ -None Drug Therapy requiring intensive monitoring for toxicity (Heparin, Nitro, Insulin, Cardizem)? @ -None Were any procedures done? @ -None Diagnosis/symptom? @ -Fall, head injury Acute, or Chronic, or Acute on Chronic? @ -Acute Uncomplicated (without systemic symptoms) or Complicated (systemic symptoms)? @ -Uncomplicated Side effects of treatment? @ -None Exacerbation, Progression, or Severe Exacerbation] @ -Not applicable Poses a threat to life or bodily function? @ -No - Radiology Data Radiology results: report reviewed, image reviewed Disposition Clinical Impression: Fall, Head injury Disposition: HOME SELF-CARE Instructions (If sedation given, give patient instructions): Fall Prevention for Older Adults (ED) Additional Instructions: Return to the emergency department with any new, worsening, or concerning symptoms. Take Tylenol as needed for pain relief. You can also apply lidocaine patches over the rib cage. Follow up with your primary care provider in 1-2 days. Is patient prescribed a controlled substance at d/c from ED?: No Referrals: Ray Mesa DO [Primary Care Provider] - 1-2 days Time of Disposition: 12:28
[2024-01-28 11:13] VITALS: BP 150/90; PULSE 95; RESP 20; TEMP 98.1
--- NOTE | 2024-01-28 12:00 | CT ---
EXAMINATION TYPE: CT brain cspine wo con CT DLP: 1974.6 mGycm, Automated exposure control for dose reduction was used. DATE OF EXAM: 01/28/2024 11:46 AM COMPARISON: None.. CLINICAL INDICATION:Female, 73 years old with history of Fall; Pt fell in the shower. Pt hit her head . Pt also has right rib pain. TECHNIQUE: Brain: Multiple axial CT images of the brain were obtained without IV contrast. Cspine: Axial CT images from the skull base to the inferior aspect of T2 we obtained without intraven ous contrast. Coronal and sagittal reformatted images were also reviewed. FINDINGS: Brain: Extra-axial spaces: No abnormal extra-axial fluid collections. Ventricular system: Within normal limits Cerebral parenchyma: No acute intraparenchymal hemorrhage or mass effect. The whitehead-white junction is well differentiated. Scattered hypoattenuating areas are seen within the periventricular white matte r. Cerebellum: Unremarkable. Mass effect: No evidence of midline shift. Intracranial vasculature: Atherosclerotic calcifications of the intracranial vessels. Soft tissues: Small posterior scalp hematoma. Calvarium/osseous structures: No depressed skull fracture. Paranasal sinuses and mastoid air cells: The mastoid air cells are clear. Mild mucosal thickening of the right frontal sinus. Remaining visualized paranasal sinuses are clear. Visualized orbits: Bilateral aphakia Cervical spine: Limited examination Fracture: None. Osseous structures: Multilevel degenerative disc disease changes with endplate spurring and anterior osteophytosis most pronounced at C5-C7. Vertebral alignment: No spinal listhesis. Reversal of normal cervical lordosis. Spinal canal/Neural Foramina: Multilevel disc bulges suggested with at least mild central canal steno sis. Facet joint uncovertebral joint arthropathy scattered throughout the cervical spine with varying degrees of neural foraminal stenosis. Neck soft tissues: Prevertebral soft tissues are within normal limits. Other: The airway is patent. IMPRESSION: 1. No acute intracranial process. 2. Nonspecific white matter changes, likely secondary to chronic small vessel ischemic disease. 3. Small acute posterior scalp hematoma. 4. No evidence of cervical spine fracture. 5. Mild to moderate multilevel degenerative disc disease. [facility], , 01/28/2024 11:58 AM
--- NOTE | 2024-01-28 12:06 | CT ---
EXAMINATION TYPE: CT chest wo con CT DLP: 1763 mGycm, Automated exposure control for dose reduction was used. DATE OF EXAM: 01/28/2024 11:50 AM COMPARISON: Chest radiograph 02/16/2022 CLINICAL INDICATION:Female, 73 years old with history of Fall; PH[facility], Pt fell in the shower. Pt hit her head. Pt also has right rib pain. TECHNIQUE: Multiple axial images were obtained through the chest without IV contrast. Lack of IV or o ral contrast limits evaluation of solid and hollow organ viscera. . Coronal and sagittal reformats re viewed. FINDINGS: Limited examination due to patient's body habitus. LUNGS/ PLEURA: No pleural effusion or pneumothorax. No focal consolidation. Minimal dependent bilater al lower lobe subsegmental atelectasis. Left lower lobe calcified granuloma. AIRWAY: Patent and unremarkable.. HEART: The heart is mildly increased in size..Trace pericardial effusion. Mild to moderate coronary a rterial calcifications. MEDIASTINUM: No gross evidence of adenopathy. VASCULATURE: No aortic aneurysm. Mild atherosclerotic calcification of the aorta and its branches. MUSCULOSKELETAL: No acute osseous abnormalities. DISH of the mid to lower thoracic spine. SOFT TISSUES/LYMPH NODES: Unremarkable. LOWER NECK: No significant findings. UPPER ABDOMEN: Diffuse low-attenuation to the liver parenchyma. Right renal fat containing 1.2 cm les ion most consistent with an angiomyolipoma. Additional left renal fat containing lesion measuring up to 0.7 cm consistent with an angiomyolipoma. Nonobstructive left renal 6 mm calculus. IMPRESSION: 1. No acute thoracic traumatic process. 2. 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 3. Nonobstructive left renal calculus. 4. Hepatic steatosis. [facility], , 01/28/2024 12:04 PM
== END 2024-01-28 12:34 | disposition home or self-care (01) ==
LOC: EC 10:57
DX: S00.03XA Contusion of scalp, initial encounter (principal); Z91.09 Other allergy status, other than to drugs and biological substances; W01.0XXA Fall on same level from slipping, tripping and stumbling without subsequent striking against object, initial encounter
CPT/HCPCS: 70450; 71250; 72125; 99284